=== PATIENT | female | born 1990 | race Caucasian/White ===

== ENCOUNTER 2016-07-22 14:57 | Emergency (ER) | payer SELFPAY ==
[2016-07-22 15:02] VITALS: BP 135/76; BMI 34.9
[2016-07-22 15:31] LABS: BILIRUBIN,URINE NEGATIVE (NEGATIVE); BLOOD/HEMOGLOBIN,URINE 3+ (NEGATIVE); GLUCOSE, URINE NEGATIVE (NEGATIVE); KETONES,URINE NEGATIVE (NEGATIVE); LEUKOCYTE ESTERASE ,URINE 3+ (NEGATIVE); NITRITES,URINE NEGATIVE (NEGATIVE); PROTEIN,URINE NEGATIVE (NEGATIVE); UROBILINOGEN,URINE NORMAL (NORMAL)
--- NOTE | 2016-07-22 15:33 | ED.ABDFE ---
HPI - Time seen Time seen: 15:25 - PCP Primary Care Physician: RODRIGUEZ - HPI Comment HPI Comment: RLQ ABDOMINAL PAIN TIMES 2 WEEKS. WORSE TODAY. DYSURIA PRESENT. - Complaint Chief Complaint Doctors Comments: RLQ ABDOMINAL PAIN TIMES 2 WEEKS. Chief Complaint:: PT C/O RIGHT LOWER QUAD PAIN FOR A FEW WEEKS AND BURING WHEN SHE PEES, AND SHE HAS BLEEDING WITH INTERCOURSE.. - Nurses notes reviewed Nurses Notes Review: Yes - Source History Provided: Patient - Mode of arrival Mode of Arrival: Ambulatory - Timing Onset of Chief Complaint: 07/08/16 Came on: Suddenly - Duration Duration: Weeks - Location Location: RLQ - Severity Severity: Moderate - Quality Quality: Sharp - Context Onset: Suddenly History of: None - Modifying Worsening Factors: Nothing Improving Factors: Nothing - Associated signs and symptoms Associated Signs and Symptoms: Dysuria PMH - PMH Past Medical History: No Past Surgical History: No Surgical History: No History - Family History History of Family Medical Conditions: No Family Medical History: Hypertension - Social History Does patient currently use any type of tobacco product: No Have you used tobacco products in the last 12 months: No Type of Tobacco Use: None Does any household member use tobacco: No Alcohol Use: None Do you use any recreational Drugs:: No Lives With: Family Lives Where: Home - infectious screening In the last 2 months have you had wt loss of >10#?: NO Have you had fever, night sweats or hemotysis?: No Have you traveled outside the country in the last 6 months?: No Isolation: Standard ROS - Review of Systems Constitutional: No Symptoms Reported Eyes: No Symptoms Reported ENTM: No Symptoms Reported Respiratoy: No Symptoms Reported Cardiovascular: No Symptoms Reported Gastrointestinal/Abdominal: Abdominal Pain Genitourinary: Dysuria Neurological: No Symptoms Reported Musculoskeletal: No Symptoms Reported Integumentary: No Symptoms Reported Hematologic/Lymphatic: No Symptoms Reported Endocrine: No Symptoms Reported All Other Systems: Reviewed and Negative PE - Vital Signs Vitals: Temperature 98.7 F Pulse Rate 96 Respiratory Rate 20 Blood Pressure [Right Arm] 110/67 Blood Pressure [Left Arm] 126/67 Blood Pressure 135/76 O2 Sat by Pulse Oximetry 100 - General Limitations: No Limitations General Appearance: Alert - Head Head Exam: Normal Inspection - Eyes Eye exam: Normal Appearance - ENT ENT Exam: Normal External Ear Exam - Neck Neck Exam: Normal Inspection - Chest Chest Inspection: Symmetric Chest Wall Rise - Respiratory Respiratory Exam: Normal Lung Sounds Bilat Respiratory Exam: Bilateral Clear to Auscultation - Cardiovascular Cardiovascular Exam: Regular Rate, Normal Rhythm, Normal Heart Sounds - Abdominal Exam Abdominal Exam: Normal Bowel Sounds, Soft, Tenderness Abdominal Tenderness: RLQ, Suprapubic - Rectal Rectal Exam: Deferred - Back Back Exam: Normal Inspection - Extremeties Extremities Exam: Normal Inspection - External Exam: Female: Deferred : Speculum Exam (Female): Deferred : Bimanual Exam (female): Deferred - Neurologic Neurological Exam: Alert, Oriented X3 - Psychiatric Psychiatric Exam: Normal Affect, Normal Mood - Skin Skin Exam: Normal Color MDM - Differential Diagnosis Differential Diagnosis- Considerations may include:: Bowel Obstruction, Ovarian cyst/torsion, Urinary tract infection, Urolithiasis Course - Treatment Treatment: SEE ORDERS - Education/Counseling Education/Counseling: Patient, Education Educated On: Diagnosis, Needs for Follow Up ROR - Labs Reviewed Laboratory Results Reviewed?: Yes Result Diagrams: 07/22/16 15:45 07/22/16 15:45 Laboratory: WBC 7.8 X10^3/uL (3.6-10.0) 07/22/16 15:45 RBC 4.79 X10^6/uL (3.5-5.4) 07/22/16 15:45 Hgb 13.8 g/dL (12.0-16.0) 07/22/16 15:45 Hct 39.4 % (36.0-47.0) 07/22/16 15:45 MCV 82.2 fL (80.0-100.0) 07/22/16 15:45 MCH 28.7 pg (27.0-34.0) 07/22/16 15:45 MCHC 34.9 g/dL (33.0-35.0) 07/22/16 15:45 RDW 12.9 % (11.6-16.5) 07/22/16 15:45 Plt Count 222 X10^3/uL (150.0-450.0) 07/22/16 15:45 MPV 9.0 fL (7.4-11.0) 07/22/16 15:45 Neut % 61.9 % (42.0-75.0) 07/22/16 15:45 Lymph % 27.8 % (21.0-51.0) 07/22/16 15:45 Rusk % 6.7 % (0.0-13.0) 07/22/16 15:45 Eos % 2.7 % (0.9-2.9) 07/22/16 15:45 Baso % 0.9 % (0.2-1.0) 07/22/16 15:45 Neut # 4.8 x10^3/uL (2.2-4.8) 07/22/16 15:45 Lymph # 2.2 X10^3/uL (1.3-2.9) 07/22/16 15:45 Rusk # 0.5 x10^3/uL (0.3-0.8) 07/22/16 15:45 Eos # 0.2 x10^3/uL (0.0-0.2) 07/22/16 15:45 Baso # 0.1 X10^3/uL (0.0-0.1) 07/22/16 15:45 Absolute Nucleated RBC 0.1 /100WBC 07/22/16 15:45 Sodium 141 mmol/L (136-145) 07/22/16 15:45 Corrected Sodium TNP 07/22/16 15:45 Potassium 4.1 mmol/L (3.5-5.1) 07/22/16 15:45 Chloride 103 mmol/L (98-107) 07/22/16 15:45 Carbon Dioxide 27.0 mmol/L (21-32) 07/22/16 15:45 BUN 10 mg/dL (7-18) 07/22/16 15:45 Creatinine 0.82 mg/dL (0.55-1.02) 07/22/16 15:45 Est GFR (MDRD) Af Amer > 60 (>60) 07/22/16 15:45 Est GFR (MDRD) Non-Af > 60 (>60) 07/22/16 15:45 Glucose 95 mg/dL (65-99) 07/22/16 15:45 Calcium 9.0 mg/dL (8.5-10.1) 07/22/16 15:45 Corrected Calcium TNP 07/22/16 15:45 Total Bilirubin 0.40 mg/dL (0.2-1.0) 07/22/16 15:45 AST 22 Units/L (15-37) 07/22/16 15:45 ALT 51 Units/L (12-78) 07/22/16 15:45 Alkaline Phosphatase 77 Units/L (46-116) 07/22/16 15:45 Total Protein 7.8 g/dL (6.4-8.2) 07/22/16 15:45 Albumin 3.9 g/dL (3.4-5.0) 07/22/16 15:45 Globulin 3.9 g/dL (2.5-4.5) 07/22/16 15:45 Albumin/Globulin Ratio 1.0 Ratio (1.1-2.1) L 07/22/16 15:45 Amylase 63 Units/L (25-115) 07/22/16 15:45 Lipase 323 Units/L (73-393) 07/22/16 15:45 HCG, Qual Negative <10 mIU/mL 07/22/16 15:45 Specimen Type Clean catch urine 07/22/16 15:11 Urine Color Yellow (YELLOW) 07/22/16 15:11 Urine Appearance Hazy (CLEAR) 07/22/16 15:11 Urine pH 8.0 (5.0 - 8.0) 07/22/16 15:11 Ur Specific Orange 1.015 (1.000-1.030) 07/22/16 15:11 Urine Protein Negative (NEGATIVE) 07/22/16 15:11 Urine Glucose (UA) Negative (NEGATIVE) 07/22/16 15:11 Urine Ketones Negative (NEGATIVE) 07/22/16 15:11 Urine Occult Blood 3+ (NEGATIVE) 07/22/16 15:11 Urine Nitrite Negative (NEGATIVE) 07/22/16 15:11 Urine Bilirubin Negative (NEGATIVE) 07/22/16 15:11 Urine Urobilinogen Normal (NORMAL) 07/22/16 15:11 Ur Leukocyte Esterase 3+ (NEGATIVE) 07/22/16 15:11 Urine RBC 3-5 /HPF (NEGATIVE) 07/22/16 15:11 Urine WBC 6-10 /HPF (NEGATIVE) 07/22/16 15:11 Ur Squamous Epith Cells Few /HPF (NEGATIVE) 07/22/16 15:11 Urine Bacteria Trace /HPF (NEGATIVE) 07/22/16 15:11 Ur Culture Indicated? No/not indicated 07/22/16 15:11 - Diagnosis Discharge Problem: RLQ abdominal pain UTI (urinary tract infection) Qualifiers: Urinary tract infection type: urethritis Qualified Code(s): N34.2 - Other urethritis - Discharge Plan Disposition: 01 HOME, SELF-CARE Condition: Stable Prescriptions: Ibuprofen [MOTRIN TAB 600 MG *] 600 mg PO TID PRN #20 tab PRN Reason: Pain/Inflammation Sulfamethoxazole-Trimethoprim [BACTRIM DS TAB 800/160 MG *] 1 tab PO BID #20 tab - Follow ups/Referrals Follow ups/Referrals: N[facility],None [Primary Care Provider] - 3 days - Instructions Instructions: Urinary Tract Infection, Abdominal Pain, Adult, [id number] Additional Instructions: RETURN TO ED IF WORSE.
[2016-07-22 15:50] LABS: APPEARANCE,URINE HAZY (CLEAR); BACTERIA,URINE TRACE /HPF (NEGATIVE); COLOR,URINE YELLOW (YELLOW); SQUAMOUS EPITHELIAL CELL,UR FEW /HPF (NEGATIVE)
[2016-07-22 15:57] LABS: BASOPHILS # (AUTO) 0.1 X10^3/uL (0.0-0.1); BASOPHILS % (AUTO) 0.9 % (0.2-1.0); EOSINOPHILS # (AUTO) 0.2 x10^3/uL (0.0-0.2); EOSINOPHILS % (AUTO) 2.7 % (0.9-2.9); HEMATOCRIT 39.4 % (36.0-47.0); HEMOGLOBIN 13.8 g/dL (12.0-16.0); LYMPHOCYTES # (AUTO) 2.2 X10^3/uL (1.3-2.9); LYMPHOCYTES % (AUTO) 27.8 % (21.0-51.0); MEAN CORPUSCULAR HEMOGLOBIN 28.7 pg (27.0-34.0); MEAN CORPUSCULAR HGB CONC 34.9 g/dL (33.0-35.0); MEAN CORPUSCULAR VOLUME 82.2 fL (80.0-100.0); MONOCYTES # (AUTO) 0.5 x10^3/uL (0.3-0.8); MONOCYTES % (AUTO) 6.7 % (0.0-13.0); NEUTROPHILS # (AUTO) 4.8 x10^3/uL (2.2-4.8); NEUTROPHILS % (AUTO) 61.9 % (42.0-75.0); PLATELET COUNT 222 X10^3/uL (150.0-450.0); RED BLOOD COUNT 4.79 X10^6/uL (3.5-5.4); RED CELL DISTRIBUTION WIDTH 12.9 % (11.6-16.5); WHITE BLOOD COUNT 7.8 X10^3/uL (3.6-10.0)
[2016-07-22 16:04] LABS: SERUM PREGNANCY TEST, QUAL NEGATIVE <10 mIU/mL
[2016-07-22 16:06] LABS: ALANINE AMINOTRANSFERASE 51 Units/L (12-78); ALBUMIN 3.9 g/dL (3.4-5.0); ALKALINE PHOSPHATASE 77 Units/L (46-116); AMYLASE 63 Units/L (25-115); ASPARTATE AMINO TRANSFERASE 22 Units/L (15-37); LIPASE 323 Units/L (73-393); TOTAL PROTEIN 7.8 g/dL (6.4-8.2)
--- NOTE | 2016-07-22 16:48 | CT ---
HISTORY: Abdominal pain Study: CT abdomen and pelvis without contrast Comparison: None Technique: Multiple axial images of the abdomen and pelvis were obtained from the lung bases to the pubic symph ysis without the administration of IV contrast. Sagittal and coronal reformations were provided. Findings: The visualized portions of the lung bases are unremarkable. The liver, spleen, pancreas, kidneys, a nd adrenal glands are unremarkable in their CT appearance. The gallbladder is unremarkable in its CT appearance. No significant mesenteric lymphadenopathy or stranding can be observed. No free fluid or free air is seen within the abdomen. The appendix is normal . The uterus is normal . There is n o adnexal mass. No bowel wall thickening or bowel dilatation is present. The colon is unremarkable. Specifically, there is no diverticulosis noted within the sigmoid colon. The urinary bladder is gr ossly unremarkable. The bony structures are grossly intact. IMPRESSION: 1. Negative CT of the abdomen and pelvis. Reported By:
[2016-07-22 16:50] LABS: BLOOD UREA NITROGEN 10 mg/dL (7-18); CHLORIDE 103 mmol/L (98-107); CREATININE 0.82 mg/dL (0.55-1.02); GLUCOSE 95 mg/dL (65-99); SODIUM 141 mmol/L (136-145); eGFR BLACK RACES > 60 (>60); eGFR NON BLACK RACES > 60 (>60)
== END 2016-07-22 17:10 | disposition home or self-care (01) ==
LOC: ER 15:08
DX: R10.31 Right lower quadrant pain (principal); N34.2 Other urethritis
CPT/HCPCS: 36415; 74176; 80053; 81001; 82150; 83690; 84703; 85025; 99283